=== PATIENT | male | born 1995 | race Caucasian/White ===

== ENCOUNTER 2021-08-25 09:59 | Emergency (ER) | payer MEDICAID ==
[~2021-08-25] VITALS: Ht 172.7 cm; Wt 73.0 kg
[2021-08-25 10:14] VITALS: BP 129/85
[2021-08-25] MEDS ORDERED: LORAZEPAM 1MG TABLET PO ONE (10:30)
[2021-08-25 12:31] LABS: BASOPHILS % 0.7 % (0.0-2.0); EOSINOPHILS % 0.4 % (0.0-5.0); HEMOGLOBIN. 17.1 g/dL (14.0-18.0); LYMPHOCYTES % 29.9 % (20.0-50.0); MEAN CORPUSCULAR HEMOGLOBIN 32.5 pg (28.0-32.0); MEAN PLATELET VOLUME 7.9 fl (7.4-10.4); MONOCYTES % 8.6 % (2.0-8.0); NEUTROPHILS % 60.4 % (40.0-76.0); PLATELET 260 x1000/uL (130-400); RED BLOOD CELL COUNT 5.26 mill/uL (4.7-6.1); RED CELL DISTRIBUTION WIDTH 13.2 % (11.6-14.6)
[2021-08-25 12:38] LABS: CHLORIDE 107 mEq/L (98-107)
== END 2021-08-25 12:43 | disposition home or self-care (01) ==
LOC: ER 09:59
DX: F41.0 Panic disorder [episodic paroxysmal anxiety] (principal); F17.210 Nicotine dependence, cigarettes, uncomplicated; Z71.6 Tobacco abuse counseling
CPT/HCPCS: 36415; 80053; 85025; 99283; 99406